=== PATIENT | male | born 1980 ===

== ENCOUNTER 2016-10-07 21:48 | Observation (INO) | payer MEDICAID, OTHER ==
[2016-10-07 21:48] VITALS: BMI 25.7
--- NOTE | 2016-10-07 22:03 | ED PDOC ---
HPI: Psych/Substance Abuse Time Seen by Provider: 10/07/16 21:56 Chief Complaint (Nursing): Chest Pain Chief Complaint (Provider): Drug Use ED Caveat: Altered Mental Status (Drowsy), Uncooperative History Per: Patient History/Exam Limitations: clinical condition Onset/Duration Of Symptoms: Hrs (x3 hours ago) Current Symptoms Are (Timing): Better Modifying Factor(s): Narcotics (Heroin) Involuntary Hold By: None Additional Complaint(s): Dimas Vivas is a 36 year old male, with a past medical history of depression and anxiety, who presents to the emergency department with complaints of substance abuse that occurred 3 hours [employer]. Patient reportedly states addiction to heroin in which he injects IV. He states injecting 4-5 bundles daily, but today only did 3. He states not knowing why he called the EMS and is drowsy. Associated chest pain is also present. HPI/ROS limited secondary to patient being uncooperative upon arrival. Of note, the patient did not need any Narcan in the field from EMS. PMD: none specified Past Medical History Reviewed: Historical Data, Nursing Documentation, Vital Signs Vital Signs: Last Vital Signs Temp 97 F L 10/07/16 21:50 Pulse 109 H 10/07/16 21:50 Resp 18 10/07/16 21:50 BP 143/89 10/07/16 21:50 Pulse Ox 98 10/07/16 21:50 - Medical History PMH: Anxiety, Depression, Seizures (ETOH related) Denies: Diabetes, Hepatitis, HIV, HTN, Pericarditis (atrial septal defect), Chronic Kidney Disease, Sexually Transmitted Disease Other PMH: Heart murmur x3 - Surgical History Surgical History: CABG - Family History Family History: States: Unknown Family Hx - Social History Current smoker - smoking cessation education provided: Yes Alcohol: Occasional (Vodka) Drugs: Opiates (IV Heroin) - Immunization History Hx Tetanus Toxoid Vaccination: No Hx Influenza Vaccination: No Hx Pneumococcal Vaccination: No - Home Medications Home Medications: Ambulatory Orders Medication Instructions Recorded Gabapentin [Neurontin] 300 mg PO BID #60 cap 06/23/16 QUEtiapine [SEROquel] 50 mg PO DAILY #30 tab 06/23/16 QUEtiapine [Seroquel] 100 mg PO HS #30 tab 06/23/16 traZODone [Desyrel] 100 mg PO HS PRN #30 tab 06/23/16 QUEtiapine [SEROquel] 50 mg PO DAILY #30 tab 08/10/16 QUEtiapine [SEROquel] 200 mg PO HS #30 tab 08/10/16 Sertraline [Zoloft] 50 mg PO DAILY #30 tab 08/10/16 traZODone [Desyrel] 100 mg PO HS #30 tab 08/10/16 Benztropine [Cogentin] 1 mg PO HS #30 tab 09/21/16 Gabapentin [Neurontin] 300 mg PO BID #60 cap 09/21/16 Haloperidol [Haldol] 10 mg PO HS #30 tab 09/21/16 QUEtiapine [Seroquel] 200 mg PO HS #30 tab 09/21/16 Sertraline [Zoloft] 50 mg PO DAILY #30 tab 09/21/16 traZODone [Desyrel] 100 mg PO HS PRN #60 tab 09/21/16 - Allergies Allergies/Adverse Reactions: Allergies Allergy/AdvReac Type Severity Reaction Status Date / Time No Known Allergies Allergy Verified 10/07/16 21:49 Review of Systems Review Of Systems: ROS cannot be obtained secondary to pt's inabilty to answer questions. Cardiovascular: Positive for: Chest Pain Psych: Positive for: Other (IV Heroin abuse) Physical Exam - Reviewed Nursing Documentation Reviewed: Yes Vital Signs Reviewed: Yes - Physical Exam Appears: Positive for: Non-toxic, No Acute Distress (Disheveled appearing) Head Exam: Positive for: ATRAUMATIC, NORMOCEPHALIC Skin: Positive for: Normal Color, Warm, Dry Eye Exam: Positive for: Normal appearance, PERRL (3-4mm b/l) Neck: Positive for: Normal, Painless ROM Cardiovascular/Chest: Positive for: Regular Rate, Rhythm. Negative for: Murmur Respiratory: Positive for: Normal Breath Sounds. Negative for: Respiratory Distress Extremity: Positive for: Normal ROM (Moving all extremities) Neurologic/Psych: Positive for: Alert (but drowsy), Oriented, Mood/Affect ( Uncooperative) - ECG O2 Sat by Pulse Oximetry: 98 Pulse Ox Interpretation: Normal Medical Decision Making Medical Decision Makin:56 Initial Impression: Substance abuse Initial Plan: * EKG * Alcohol Serum * Accucheck * Reevaluation 22:25 Patient will be placed within ED Observation secondary to substance abuse. Pending ED workup and clinical sobriety. See Obs note for further updates. Scribe Attestation: Documented by Edwar Ponce, training under Kendra Solorzano, acting as a scribe for Dylan Singh MD. Provider Scribe Attestation: All medical record entries made by the Scribe were at my direction and personally dictated by me. I have reviewed the chart and agree that the record accurately reflects my personal performance of the history, physical exam, medical decision making, and the department course for this patient. I have also personally directed, reviewed, and agree with the discharge instructions and disposition.A ED OBSERVATION Date of observation admission: 10/07/16 Time of observation admission: 22:25 - Observation admission statement Patient is being placed in observation because:: Substance abuse - Goals of Observation Goals of observation are:: Pending ED workup, clinical sobriety, reevaluation and final disposition. - Progress Note Progress Note: 10/08/16 06:02 Patient is awake and alert, medically stable, and requires no further treatment in the ED at this time. Patient will be discharged. Counseling was provided and all questions were answered regarding diagnosis and need for follow up with PMD. There is agreement to discharge plan. Return if symptoms persist or worsen. Disposition - Clinical Impression Clinical Impression: Heroin abuse, Alcohol abuse - Disposition Disposition Time: 22:25 Condition: IMPROVED
[2016-10-08 06:35] VITALS: BP 110/77; PULSE 88; RESP 16; TEMP 97.7; O2SAT 97
--- NOTE | 2016-10-08 09:32 | CARD ---
APPROVED REPORT EKG Measurement Heart [id number] <Conclusion> Sinus tachycardia Possible Left atrial enlargement Borderline ECG
== END 2016-10-08 06:02 | disposition home or self-care (01) ==
LOC: H.ER 21:48 → H.EROBSV 22:25
PROVIDERS: ADMIT Emergency Medicine; ATTEND Emergency Medicine
DX: F11.10 Opioid abuse, uncomplicated (principal); F10.129 Alcohol abuse with intoxication, unspecified; Y90.8 Blood alcohol level of 240 mg/100 ml or more; Z95.1 Presence of aortocoronary bypass graft; I25.10 Atherosclerotic heart disease of native coronary artery without angina pectoris; F32.9 Major depressive disorder, single episode, unspecified; F41.9 Anxiety disorder, unspecified; F17.200 Nicotine dependence, unspecified, uncomplicated